=== PATIENT | female | born 1985 | race Two or more races ===

== ENCOUNTER 2023-06-17 20:17 | Emergency (ER) | payer BC, SELFPAY ==
[2023-06-17 20:38] VITALS: BP 102/70
[2023-06-17 20:43] LABS: Glucose - Point of Care 118 mg/dl (70-99)
--- NOTE | 2023-06-17 21:27 | ED.GENMED ---
History of Present Illness
General
Chief Complaint: Dizziness
Source: patient
Exam Limitations: none
Time Seen by Provider: 06/17/23 21:24
Nursing documentation reviewed up to this point in time: agreed with
Travel History
Have you had any contact with someone who has COVID-19?: No
Do you have any symptoms of coronavirus? Fever > 100 degrees, chills, cough, shortness of breath, sore throat, loss of taste or smell, muscle aches, or headache?: No
History of Present Illness
History of Present Illness:
37-year-old female presents emergency department complaining of fever, nausea vomiting diarrhea epigastric pain and dizziness. At work she had an IV placed and received 1 L of lactated Ringer's and 500 mL of D5W. She took 1 g of Tylenol 1 hour
prior to arrival.
Past History
Past History
ED Past Medical History: Other (UTIs, 1 previous episode of pyelonephritis.)
ED Past Surgical History: Tonsilectomy
Social History
Tobacco: Non-smoker
Alcohol: Occasional
Drug: None
Personal:
Living: with family
Employment: Employed
Review of Systems
Review of Systems
Allergies reviewed?: Yes
All Other Systems: Not applicable
Constitutional: Reports fever
EENT: Reports no symptoms
Respiratory: Reports no symptoms
Cardiac: Reports no symptoms
ABD/GI: Reports abdominal pain, vomiting and diarrhea
: Reports no symptoms
Musculoskeletal: Reports no symptoms
Skin: Reports no symptoms
Neurological: Reports no symptoms
Endocrine: Reports no symptoms
Hematologic/Lymphatic: Reports no symptoms
Psychiatric: Reports no symptoms
Phy Exam
Physical Exam
Physical Exam:
Physical Exam
General: no apparent distress, not acutely ill
Neck: supple. no meningeal signs. normal posterior pharynx
Heart: s1/s2 regular rate and rhythm, no murmur. equal radial
pulses.
HEENT: Pupils equal round reactive to light, EOMI
Lungs: no acute respiratory distress. clear bilaterally
Abdomen: normal bowel sounds. Epigastric tenderness. no CVAT
Neuro: alert and oriented. no focal neurological deficits cranial nerves II through XII intact
Skin: no rash
Psychiatric: well kept. interactive and cooperative
Extremities: no edema. no calf tenderness. negative homans. good distal pulses
Course
Orders/Labs/Results
Orders:
Orders
06/17/23 20:20
ECG [Electrocardiogram (*1)] Urgent
Reason for Study: Syncope
06/17/23 20:21
EKG- Treatment ONCE
06/17/23 21:39
IV Insert/Care/Rem.- Treatment PRN
Test Result ONCE
US Abdomen Complete/Upper Urgent
Comment:
Reason For Exam: epigastric pain, n/v/d fever
06/17/23 21:40
Electrocardiogram (*1) Urgent
Reason for Study: QTc Monitoring
06/17/23 21:42
Ondansetron Injectable [Zofran] 4 mg IV NOW STA
06/17/23 22:17
COVID-19 Antigen Urgent
Source: Nasal Swab
Complete Blood Count/With Diff Urgent
Comprehensive Metabolic Panel Urgent
HCG, Serum Qualitative Screen Urgent
Lipase Urgent
Influenza A+B Rapid Molecular Urgent
ARSEN Source: Nasal Swab
Specimen Description:
06/17/23 22:22
0.9% Sodium Chloride 500 ml [Nss] 1,000 ml IV ONCE
06/17/23 23:07
Pantoprazole [Protonix IV] 40 mg IV NOW STA
Abnormal Lab Results
06/17/23 06/17/23
20:42 22:17
Absolute Lymphs (auto) 1.0 L 10^3/uL
(1.2-3.4)
Neutrophils % 82.1 H %
(42.2-75.2)
Lymphocytes % 13.1 L %
(20.5-51.1)
Sodium 134 L mmol/L
(135-145)
Chloride 108 H mmol/L
(98-107)
Carbon Dioxide 21 L mmol/L
(22-30)
BUN 6 L mg/dl
(7-17)
Creatinine 0.4 L mg/dL
(0.6-1.0)
POC Glucose 118 H mg/dl
(70-99)
06/17/23 22:17
06/17/23 22:17
Vital Signs
Initial and Last Documented VS:
Initial Vital Signs
Temp Pulse Resp BP Pulse Ox
98.8 F 99 18 102/70 99
06/17/23 20:38 06/17/23 20:38 06/17/23 20:38 06/17/23 20:38 06/17/23 20:38
Last Documented Vital Signs
Temp Pulse Resp BP Pulse Ox
98.4 F 84 17 108/78 99
06/18/23 00:14 06/18/23 00:14 06/18/23 00:14 06/18/23 00:14 06/18/23 00:14
MDM/Problems Addressed
Differential Diagnosis Includes:
Cholecystitis, gastroenteritis
MDM/Problems Addressed:
37-year-old female with likely viral gastroenteritis. No acute findings on ultrasound. Patient feels improved after IV fluids normal saline.
*Radiology
Radiology exam reviewed: radiology read reviewed (Ultrasound shows biliary sludge, otherwise no acute findings)
*Pulse Oximetry
Patient hypoxic: no
*EKG
Interpreted by ED Provider?: Yes
EKG Intrepretation Date: 06/17/23
EKG Intrepretation Time: 20:26
Interpretation: abnormal
Comparison EKG: no comparison EKG present
Heart Rate: 97
Rate: normal
Rhythm: sinus and PVC's
[place]: normal axis
Interval: normal interval
QRS Pattern: normal QRS
Ischemia: no ischemia
*Plant [employer] Interpretation
Rate: normal
Interpretation: normal
Heart Rate: 84
Rhythm: sinus
*Critical Care Note
Total Time (30-74mins, 75-104mins- exclusive of procedures): Not Applicable
Patient Management
Social determinants of health affecting care: Living situation
Escalation/DeEscalation of care consider admission/obs:
admit not indicated
ED Attending Note
-
Portions of this chart may have been created with voice recognition software.� Occasional wrong word or��sound alike� substitutions may have occurred due to the inherent limitations of voice recognition software.
Discharge Plan
Departure
Patient Disposition: Home (Routine Discharge)
Date of Disposition: 06/17/23
Time of Disposition: 23:36
Patient with high blood pressure during this ER visit?: No
Condition: Good
Discharge Problem:
Nausea vomiting and diarrhea
Instructions: Viral gastroenteritis in adults, Abdominal Pain, Adult ED
Prescriptions:
New
ondansetron HCl 4 mg tablet
4 mg PO Q8H PRN (Reason: nausea and vomiting) 3 Days Qty: 10 0RF
No Action
ciprofloxacin HCl [Cipro] 500 MG tablet
500 mg PO BID
drospirenone-ethinyl estradiol [Vestura (28)] 1 EACH tablet
1 tab PO DAILY
pantoprazole 40 MG tablet,delayed release (DR/EC)
40 mg PO DAILY Qty: 14 0RF
ondansetron 4 MG tablet,disintegrating
4 mg PO TIDPRN PRN (Reason: NAUSEA) Qty: 10 0RF
Referrals:
UNKNOWN,PT [Family Provider] -
Activity Restrictions/Additional Instructions:
Return for any concerns. Follow up with primary care in 3-5 days.
Interventions
Interventions:
*Risk Screen - Suicide Last Done: 06/17/23 22:34
*General Assessment Last Done: 06/17/23 22:34
*Neglect/Abuse Screening Last Done: 06/17/23 22:34
ED- Fall Risk Assessment Last Done: 06/17/23 22:34
*ED COVID-19 Vaccine History Last Done: 06/17/23 22:34
*Nursing Disposition Last Done: 06/18/23 00:17
ED- Neurological Assessment Last Done: 06/17/23 22:34
ED- Cardiac Assessment Last Done: 06/17/23 22:34
ED Swallowing Screen Last Done: 06/17/23 22:36
Discharge Date and Time
Discharge Date/Time: 06/18/23 00:17
Print Language: PORTUGUESE
[2023-06-17] MEDS: NSS 1000 IV (22:23)
[2023-06-17] MEDS: ZOFRAN 4 MG IV (22:24)
[2023-06-17 22:26] LABS: % Basophils 0.1 % (0-2); % Eosinophils 0.1 % (0-6); % Immature Granulocytes 0.4 % (0-0.5); % Lymphocytes 13.1 % (20.5-51.1); % Monocytes 4.2 % (1.7-9.3); % Neutrophils 82.1 % (42.2-75.2); Absolute Monocytes 0.3 10^3/uL (0.1-0.6); Hemoglobin 12.7 g/dL (12.0-16.0); Mean Corp Hgb Conc. 34.3 g/dL (33.0-37.0); Mean Corpuscular Hgb 29.2 pg (27.0-31.0); Mean Corpuscular Volume 85.1 fL (81.0-99.0); Mean Platelet Volume 9.9 fL (7.4-10.4); Nucleated Red Blood Cells % 0 %; Platelet Count 217 10^3/uL (130-400); Red Blood Cell Count 4.35 10^6/uL (4.20-5.40); Red Cell Dist. Width 12.3 % (11.5-14.5); White Blood Cell Count 7.3 10^3/uL (4.8-10.8)
[2023-06-17 22:34] VITALS: BMI 21.5
[2023-06-17 22:40] LABS: COVID-19 Antigen Negative (Negative); HCG, Serum Qualitative Screen Negative
[2023-06-17 22:46] LABS: ALT (SGPT) 13 U/L (0-35); AST (SGOT) 20 U/L (14-36); Albumin 3.6 g/dl (3.5-5.0); Alkaline Phosphatase 56 U/L (38-126); Blood Urea Nitrogen 6 mg/dl (7-17); Calcium 8.8 mg/dl (8.4-10.2); Carbon Dioxide 21 mmol/L (22-30); Chloride 108 mmol/L (98-107); Estimated Creatinine Clearance > 125 ml/min; Glucose 82 mg/dl (70-99); Lipase 34 U/L (23-300); Potassium 3.5 mmol/L (3.5-5.1); Sodium 134 mmol/L (135-145); Total Protein 6.4 g/dl (6.3-8.2); eGFR > 60.00
[2023-06-17] MEDS: PROTONIX IV 40 MG IV (23:17)
[2023-06-18 00:14] VITALS: BP 108/78
== END 2023-06-18 00:17 | disposition home or self-care (01) ==
LOC: EMR 20:17
PROVIDERS: EMERGENCY PHYSICIAN Emergency Medicine
DX: R19.7 Diarrhea, unspecified (principal); R11.2 Nausea with vomiting, unspecified; R10.9 Unspecified abdominal pain; R10.13 Epigastric pain; R50.9 Fever, unspecified; R42 Dizziness and giddiness; Z11.52 Encounter for screening for COVID-19
CPT/HCPCS: 99285; 96374; 96375; 96361; 76700; 80053; 82962; 83690; 84703; 85025; 87502; 87811; 93005